=== PATIENT | male | born 1945 | race Native Hawaiian/Other Pacific Islander ===

== ENCOUNTER 2016-09-26 14:58 | Outpatient (CLI) | payer OTHER ==
[~2016-09-26 14:58] MED LIST: ASA LOW STR81 MG PO; LEVO0.0529 PO; LISI10TA11 PO; SIMV20TA2 PO
[2016-09-26 15:20] LABS: PLATELET COUNT 213 K/uL (142-355)
[2016-09-26 15:43] LABS: POTASSIUM 4.1 mmol/L (3.6-5.2)
== END 2016-09-26 19:32 | disposition home or self-care (01) ==
LOC: LAB 14:58
PROVIDERS: Nurse Practitioner Family
DX: Z00.00 Encounter for general adult medical examination without abnormal findings (principal); I10 Essential (primary) hypertension; E03.8 Other specified hypothyroidism; Z79.899 Other long term (current) drug therapy; Z12.5 Encounter for screening for malignant neoplasm of prostate; E55.9 Vitamin D deficiency, unspecified
CPT/HCPCS: 80053; 80061; 82306; 82607; 83036; 84154; 84436; 84443; 85027

== ENCOUNTER 2017-03-30 07:29 | Outpatient (CLI) | payer OTHER ==
[2017-03-30 08:06] LABS: PLATELET COUNT 224 K/uL (142-355)
[2017-03-30 09:17] LABS: POTASSIUM 4.1 mmol/L (3.6-5.2)
== END 2017-03-30 08:30 | disposition home or self-care (01) ==
LOC: LABW 07:29
PROVIDERS: Nurse Practitioner
DX: E55.9 Vitamin D deficiency, unspecified (principal); R53.83 Other fatigue; Z12.5 Encounter for screening for malignant neoplasm of prostate; E03.8 Other specified hypothyroidism; E78.00 Pure hypercholesterolemia, unspecified
CPT/HCPCS: 36415; 80053; 80061; 82306; 84153; 84402; 84403; 84436; 84443; 85027

== ENCOUNTER 2019-01-02 14:22 | Outpatient (CLI) | payer OTHER | END 2019-01-02 22:19 | disposition home or self-care (01) | LOC: RAD 14:22 | DX: M54.5 Low back pain (principal) ==

== ENCOUNTER 2019-06-14 08:31 | Outpatient (CLI) | payer OTHER | END 2019-06-14 16:00 | disposition home or self-care (01) | LOC: RAD 08:31 | DX: M54.89 Other dorsalgia (principal) ==

== ENCOUNTER 2019-06-27 10:22 | Emergency (ER) | payer OTHER ==
[~2019-06-27] VITALS: Ht 182.9 cm; Wt 90.7 kg
[2019-06-27 10:33] VITALS: TEMP 97.5
[2019-06-27 10:54] LABS: PLATELET COUNT 213 K/uL (142-355)
[2019-06-27 11:03] LABS: POTASSIUM 4.3 mmol/L (3.6-5.2); SODIUM 141 mmol/L (136-145)
[2019-06-27 11:47] VITALS: BP 171/84
== END 2019-06-27 11:48 | disposition home or self-care (01) ==
LOC: ED 10:22
PROVIDERS: Emergency Medicine
DX: I10 Essential (primary) hypertension (principal); R00.1 Bradycardia, unspecified
CPT/HCPCS: 80053; 84443; 84484; 85027; 93005; 99283

== ENCOUNTER 2019-07-31 11:46 | Outpatient (CLI) | payer OTHER ==
[~2019-07-31] VITALS: Ht 30.5 cm; Wt 0.5 kg
== END 2019-07-31 19:26 | disposition home or self-care (01) ==
LOC: CT 11:46
DX: M54.89 Other dorsalgia (principal); G89.29 Other chronic pain; M25.78 Osteophyte, vertebrae; Z79.899 Other long term (current) drug therapy
CPT/HCPCS: 36415; 85610; Q9963

== ENCOUNTER 2020-02-11 15:07 | Outpatient (CLI) | payer OTHER ==
[2020-02-11 15:33] LABS: PLATELET COUNT 219 K/uL (142-355)
[2020-02-11 16:01] LABS: POTASSIUM 4.5 mmol/L (3.6-5.2)
== END 2020-02-11 19:16 | disposition home or self-care (01) ==
LOC: LAB 15:07
PROVIDERS: Internal Medicine
DX: R42 Dizziness and giddiness (principal); I10 Essential (primary) hypertension; E03.8 Other specified hypothyroidism; K21.9 Gastro-esophageal reflux disease without esophagitis; E55.9 Vitamin D deficiency, unspecified; E78.49 Other hyperlipidemia; M54.89 Other dorsalgia; R39.198 Other difficulties with micturition; N40.0 Benign prostatic hyperplasia without lower urinary tract symptoms
CPT/HCPCS: 80053; 80061; 82652; 84153; 84443; 85027